=== PATIENT | female | born 1970 | race Caucasian/White ===

== ENCOUNTER 2017-02-04 19:45 | Inpatient (IN) | payer MEDICAID ==
[~2017-02-04] VITALS: Ht 162.6 cm; Wt 78.0 kg
[2017-02-04] MEDS ORDERED: ONDANSETRON 2MG/ML, 2ML IVPush ONE ×2 (20:30→21:30)
[2017-02-04] MEDS ORDERED: SODIUM CHLORIDE FLUSH 10ML SYR IVF ONE (20:30)
[2017-02-04] MEDS ORDERED: SODIUM CHLORIDE 0.9% 1,000ML IVBOLUS ONE ×2 (20:30→21:30)
[2017-02-04] MEDS ORDERED: MAALOX/HYOSCYAMINE/LIDOCAINE 45 ML BTL PO ONE (20:30)
[2017-02-04] MEDS ORDERED: FAMOTIDINE 20 MG TABLET PO ONE (20:30)
[2017-02-04 20:50] LABS: ASPARTATE AMINO TRANSFERASE 21 U/L (15-37); BLOOD UREA NITROGEN 21 mg/dL (7-18)
[2017-02-04] MEDS ORDERED: OMNIPAQUE 350 MG/ML, 100ML BOTTLE ONE (21:19)
[2017-02-04] MEDS ORDERED: MORPHINE SULFATE 4 MG/ML, 1ML IVPush PRN ×2 (21:30→22:30)
[2017-02-04 22:12] LABS: PATH.CAST-FLAG NOT PRESENT; SPERM-FLAG NOT PRESENT; SRC-FLAG NOT PRESENT; XTAL-FLAG NOT PRESENT; YLC-FLAG NOT PRESENT
[2017-02-04] MEDS ORDERED: MAALOX/HYOSCYAMINE/LIDOCAINE 45 ML BTL ONE (22:24)
[2017-02-04] MEDS ORDERED: MORPHINE SULFATE 4 MG/ML, 1ML ONE (22:24)
[2017-02-04] MEDS ORDERED: ONDANSETRON 2MG/ML, 2ML ONE (22:24)
[2017-02-04] MEDS ORDERED: FAMOTIDINE 20 MG/2 ML ONE (22:24)
[2017-02-04] MEDS ORDERED: SODIUM CHLORIDE 0.9% 1,000 ML IV ONE (22:28)
[2017-02-04] MEDS ORDERED: ONDANSETRON 2MG/ML, 2ML IVPush PRN ×2 (22:30→23:00)
[2017-02-04] MEDS ORDERED: TEMAZEPAM 15 MG CAPSULE PO PRN (23:00)
[2017-02-05 00:35] VITALS: BP 143/87
[2017-02-05] MEDS: SODIUM CHLORIDE 0.9% 1,000 ML IV SCH ×3 (00:58→16:53)
[2017-02-05] MEDS: MORPHINE SULFATE 4 MG/ML, 1ML IVPush PRN ×5 (01:13→20:09)
[2017-02-05] MEDS: ENOXAPARIN 40 MG/0.4 ML SQ SCH (01:17)
[2017-02-05] MEDS: LEVOFLOXACIN/PMX 500MG/100ML 100 ML IV SCH (01:17)
[2017-02-05] MEDS: metroNIDAZOLE 500 MG TABLET PO SCH ×4 (01:17→21:42)
[2017-02-05] MEDS: LACTOBACILLUS 1GM/ PACKET PO SCH ×5 (01:19→21:42)
[2017-02-05 06:04] VITALS: BP 127/78
[2017-02-05 06:29] LABS: BLOOD UREA NITROGEN 15 mg/dL (7-18)
[2017-02-05 06:42] LABS: DIFF TOTAL CELLS COUNTED 100 CELL DIFF
[2017-02-05 06:43] LABS: VERIFY COUNTS? YES
[2017-02-05 15:24] VITALS: BP 126/83
[2017-02-05] MEDS: ACETAMINOPHEN 325 MG TABLET PO PRN (16:45)
[2017-02-05 19:06] VITALS: BP 104/65
[2017-02-06] MEDS: MORPHINE SULFATE 4 MG/ML, 1ML IVPush PRN ×3 (00:44→12:07)
[2017-02-06] MEDS: SODIUM CHLORIDE 0.9% 1,000 ML IV SCH ×3 (00:45→16:55)
[2017-02-06] MEDS: LEVOFLOXACIN/PMX 500MG/100ML 100 ML IV SCH (00:47)
[2017-02-06] MEDS: ENOXAPARIN 40 MG/0.4 ML SQ SCH ×2 (00:48→20:52)
[2017-02-06 02:32] VITALS: BP 105/63
[2017-02-06] MEDS: LACTOBACILLUS 1GM/ PACKET PO SCH ×4 (06:20→20:51)
[2017-02-06] MEDS: metroNIDAZOLE 500 MG TABLET PO SCH ×3 (09:13→20:51)
[2017-02-06 09:38] VITALS: BP 111/72
[2017-02-06 14:55] VITALS: BP 124/77
[2017-02-06] MEDS: LEVOFLOXACIN 500 MG TABLET PO SCH (14:58)
[2017-02-06] MEDS: HYDROcodone/APAP 5/325 TABLET PO PRN (17:00)
[2017-02-06] MEDS ORDERED: TEMAZEPAM 15 MG CAPSULE PO PRN (20:00)
[2017-02-06] MEDS ORDERED: ONDANSETRON 2MG/ML, 2ML IVPush PRN (20:00)
[2017-02-06 20:56] VITALS: BP 128/88
[2017-02-07] MEDS: HYDROcodone/APAP 5/325 TABLET PO PRN (00:25)
[2017-02-07] MEDS: SODIUM CHLORIDE 0.9% 1,000 ML IV SCH ×2 (00:26→09:00)
[2017-02-07 00:59] VITALS: BP 122/74
[2017-02-07] MEDS: LACTOBACILLUS 1GM/ PACKET PO SCH ×2 (04:51→12:30)
[2017-02-07] MEDS: metroNIDAZOLE 500 MG TABLET PO SCH ×2 (04:51→12:30)
[2017-02-07 05:05] LABS: BLOOD UREA NITROGEN 4 mg/dL (7-18)
[2017-02-07 05:09] LABS: ASPARTATE AMINO TRANSFERASE 46 U/L (15-37)
[2017-02-07 06:49] VITALS: BP 134/87
[2017-02-07] MEDS ORDERED: POTASSIUM CHLORIDE 20 MEQ TAB.ER.PRT PO ONE (07:00)
[2017-02-07] MEDS: ACETAMINOPHEN 325 MG TABLET PO PRN (07:17)
[2017-02-07] MEDS ORDERED: METR500T PO (11:16)
[2017-02-07] MEDS ORDERED: LEVO500T33 PO (11:16)
[2017-02-07] MEDS ORDERED: HYDR-3240 PO (11:16)
[2017-02-07 11:45] VITALS: BP 151/88
[2017-02-07] MEDS: LEVOFLOXACIN 500 MG TABLET PO SCH (12:30)
== END 2017-02-07 13:11 | disposition home or self-care (01) | DRG 392 ==
LOC: ED 22:43 → SUATTDRO 22:46 → EDIP 23:12 → 4NOR 02-05 00:19 → DCLOUNGE 02-07 12:35
PROVIDERS: ADMIT Internal Medicine; ATTEND Internal Medicine
DX: A09 Infectious gastroenteritis and colitis, unspecified (principal); I10 Essential (primary) hypertension; F17.210 Nicotine dependence, cigarettes, uncomplicated; E86.0 Dehydration; Z86.19 Personal history of other infectious and parasitic diseases; Z82.49 Family history of ischemic heart disease and other diseases of the circulatory system
CPT/HCPCS: 36415; 74177; 80048; 80053; 81003; 83690; 83735; 84703; 85025; 86677; 87046; 87324; 89055; 96361; 96374; 96375; J1650; J1956; J2405; Q9967; J7030

== ENCOUNTER → 2018-01-12 | Outpatient (CLI) | payer MEDICAID ==
[~2018-01-12] MED LIST: HYDR-3240 PO; LEVO500T47 PO; METR500T PO
== END | disposition home or self-care (01) ==
LOC: CARD 09:22
PROVIDERS: ATTEND Physician Assistant
DX: I10 Essential (primary) hypertension (principal); R07.9 Chest pain, unspecified
CPT/HCPCS: 93017